=== PATIENT | male | born 1965 | race Caucasian/White ===

== ENCOUNTER → 2017-08-30 | Outpatient (CLI) | payer BC ==
[~2017-08-30] MED LIST: DIOVAN160 MG PO
== END | disposition home or self-care (01) ==
LOC: CDC 08:00
DX: Z01.810 Encounter for preprocedural cardiovascular examination (principal); S83.231D Complex tear of medial meniscus, current injury, right knee, subsequent encounter; M25.561 Pain in right knee; M17.11 Unilateral primary osteoarthritis, right knee; R94.31 Abnormal electrocardiogram [ECG] [EKG]
CPT/HCPCS: 93000

== ENCOUNTER 2018-03-12 09:03 | Emergency (ER) | payer BC ==
[~2018-03-12] VITALS: Ht 188 cm; Wt 129.6 kg
[2018-03-12 10:12] LABS: HEMOGLOBIN 14.5 G/DL (12.5-16.6); MCH 31.7 PG (29.0-34.0); MCHC 35.4 G/DL (30.0-36.0); MCV 89.5 FL (86-99); PLATELET COUNT 227 K/uL (156-360); RBC DIS.WIDTH-CV 11.8 % (11.8-14.6); RBC DIS.WIDTH-SD 38.2 % (39-53); RED BLOOD COUNT 4.58 M/uL (4.00-5.50); WHITE BLOOD COUNT 4.8 K/uL (4.1-10.2)
[2018-03-12 10:21] LABS: CHLORIDE 107 mEq/L (99-109); SODIUM 141 mEq/L (136-147)
[2018-03-12 10:23] LABS: GLUCOSE 123 mg/dL (70-99)
[2018-03-12 10:26] LABS: CREATININE 0.8 mg/dL (0.6-1.3); GFR ESTIMATE (CALCULATED) > 59 mL/min/ (58.99-99999)
[2018-03-12 10:27] LABS: UREA NITROGEN (BUN) 10 mg/dL (9-23)
[2018-03-12 10:29] LABS: URIC ACID 5.4 mg/dL (3.1-9.2)
[2018-03-12 10:47] LABS: ERTH.SED.RATE 16 MM/HR (0-15)
[2018-03-12 11:00] LABS: C-REACTIVE PROTEIN 1.9 MG/L (0-10)
[2018-03-12] MEDS ORDERED: NAPROSYN500 MG PO (11:08)
[2018-03-12 11:26] VITALS: BP 132/72
== END 2018-03-12 11:30 | disposition home or self-care (01) ==
LOC: EME 09:03
PROVIDERS: Nurse Practitioner Family
DX: M25.531 Pain in right wrist (principal); M79.7 Fibromyalgia; M10.9 Gout, unspecified; I10 Essential (primary) hypertension
CPT/HCPCS: 73110; 80048; 84550; 85027; 85651; 86140; 99281; 99284